=== PATIENT | male | born 2000 | race Caucasian/White ===

== ENCOUNTER 2019-09-10 20:28 | Inpatient (IN) | payer BC, SELFPAY ==
--- NOTE | ~2019-09-10 | XR_ITS ---
XR chest 1V portable 09/10/2019 21:09 Indication: Shortness of breath, cough and fever Procedure: AP portable chest Comparison: No prior studies for comparison. Findings: Right middle lobe and left perihilar airspace disease, compatible with pneumonia. Heart siz e normal. No pleural effusion, edema or pneumothorax. Impression: 1: Right middle lobe and left perihilar pneumonia. Reviewed, dictated and finalized at location A. Impression: 1: Right middle lobe and left perihilar pneumonia.
[2019-09-10 20:32] VITALS: BP 148/84; PULSE 120; RESP 18; TEMP 36.4; O2SAT 95
[2019-09-10 20:40] VITALS: BP 148/84; PULSE 115; RESP 22; TEMP 36.4; O2SAT 94
[2019-09-10 20:50] VITALS: PULSE 122
--- NOTE | 2019-09-10 20:51 | ECG_ITS ---
Measurements Intervals [place] Rate: 108 P: 13 NV: 121 QRS: 91 QRSD: 96 T: 13 QT: 314 QTc: 421 Interpretive Statements SINUS TACHYCARDIA RIGHT AXIS DEVIATION BORDERLINE T WAVE ABNORMALITY- INFERIOR LEADS ABNORMAL ECG Electronically Signed On 09-11-2019 7:09:43 CDT by Jose Collins D.O.
[2019-09-10 21:03] LABS: Basophils Absolute Auto 0.1 K/mm3 (0.0-0.1); Basophils Percent Auto 0.5 % (0.2-1.2); Eosinophils Absolute Auto 0.1 K/mm3 (0-0.3); Eosinophils Percent Auto 1.2 % (0-4.4); Hematocrit 43.7 % (42.0-52.0); Immature Granulocyte Absolute 0.06 K/mm3 (0.00-0.031); Immature Granulocyte Percent A 0.5 % (0-0.5); Lymphocytes Absolute Auto 1.25 K/mm3 (0.9-3.2); Lymphocytes Percent Auto 10.4 % (18.3-44.2); Mean Corpuscular HGB Conc 34.3 g/dl (32-36); Mean Corpuscular Volume 87.4 fl (80-100); Mean Platelet Volume 9.8 fl (7.4-10.4); Monocytes Absolute Auto 1.3 K/mm3 (0.1-0.6); Monocytes Percent Auto 10.9 % (2.6-8.5); Neutrophils Absolute Auto 9.2 K/mm3 (1.3-6.7); Neutrophils Percent Auto 76.5 % (45.5-73.1); Platelet Count Result 326 k/mm3 (150-375); Red Cell Distribution Width 12.3 % (11.5-14.5)
[2019-09-10 21:24] VITALS: BP 128/76; PULSE 104; RESP 24; O2SAT 93
[2019-09-10] MEDS: SODIUM CHLORIDE 0.9% IV 1,000 ML 999 ML IV CONT (21:30)
[2019-09-10 21:35] LABS: Blood Urea Nitrogen 12 mg/dL (8-21); Calcium 9.3 mg/dL (8.9-10.7); Carbon Dioxide 26 mmol/L (22-30); Chloride 103 mmol/L (98-107); Estimated CRCL calculation 124 ml/min; Estimated Glomerular Filt Rate > 60; Glucose 137 mg/dL (75-110); Potassium 3.5 mmol/L (3.4-5.0); Sodium 138 mmol/L (134-143)
--- NOTE | 2019-09-10 22:01 | ED.GENADULT ---
HPI - General Adult General Chief complaint: Upper Respiratory Infection Stated complaint: cough, fever Time Seen by Provider: 09/10/19 20:37 History of Present Illness HPI narrative: Patient is a 18-year-old male who presents ER with fever and cough. Ongoing over the last week. Cough is nonproductive. Is associate with some chest discomfort especially when coughing. He is short of breath with any type of movement and ambulation. 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 There have been some sick contacts we is unsure what they were diagnosed with. He reports sore throat but no rhinorrhea/sinus congestion. He has not been taking medications other than Tylenol for fever. Highest temperature was 104.0 ?F. No alleviating factors for his other symptoms. Reports decreased oral fluid and food intake. Related Data Allergies Allergy/AdvReac Type Severity Reaction Status Date / Time No Known Allergies Allergy Unverified 08/05/18 21:14 PMFSH Past Medical History Medical History (Updated 09/11/19 @ 00:41 by Maurice Váqzuez MD) No pertinent past medical history Surgical History Surgical History (Updated 09/10/19 @ 22:03 by Maurice Vázquez MD) No pertinent past surgical history Social History Social History (Updated 09/10/19 @ 22:03 by Mauriec Vázquez MD) Smoking status: Never smoker Alcohol intake: never Exam Narrative: Exam Narrative: GENERAL: Uncomfortable-appearing, well-nourished, and in no acute distress. HEAD: Normocephalic, atraumatic. CHEST: Clear to auscultation. No respiratory distress. HEART: Tachycardic and regular. Normal peripheral pulses. ABDOMEN: Soft, nontender, nondistended. EXTREMITIES: Normal range of motion. No edema. SKIN: Warm, dry, no rash. NEURO: Alert and oriented x3. PSYCH: Normal mood and affect. Course Vital Signs Vital signs: Vital Signs Temperature 97.6 F 09/10/19 20:32 Pulse Rate 120 H 09/10/19 20:32 Respiratory Rate 18 09/10/19 20:32 Blood Pressure 148/84 H 09/10/19 20:32 Pulse Oximetry 95 09/10/19 20:32 Temperature 99.6 F 09/11/19 00:36 Pulse Rate 112 H 09/11/19 00:36 Respiratory Rate 26 H 09/11/19 00:36 Blood Pressure 100/53 L 09/11/19 00:36 Pulse Oximetry 95 09/11/19 00:36 Medical Decision Making Vital Signs Vital Signs: Vital Signs Temperature 97.6 F 09/10/19 20:32 Pulse Rate 120 H 09/10/19 20:32 Respiratory Rate 18 09/10/19 20:32 Blood Pressure 148/84 H 09/10/19 20:32 Pulse Oximetry 95 09/10/19 20:32 Temperature 99.6 F 09/11/19 00:36 Pulse Rate 112 H 09/11/19 00:36 Respiratory Rate 26 H 09/11/19 00:36 Blood Pressure 100/53 L 09/11/19 00:36 Pulse Oximetry 95 09/11/19 00:36 Lab Data Result diagrams: 09/10/19 20:58 09/10/19 21:19 Labs: Lab Results 09/10/19 09/10/19 09/10/19 Range/Units 20:58 21:19 23:38 WBC 12.0 H (4.5-10.0) K/mm3 RBC 5.00 (4.6-6.20) M/mm3 Hgb 15.0 (14.0-18.0) g/dL Hct 43.7 (42.0-52.0) % MCV 87.4 (80-100) fl MCH 30.0 (26-34) pg MCHC 34.3 (32-36) g/dl RDW 12.3 (11.5-14.5) % Plt Count 326 (150-375) k/mm3 MPV 9.8 (7.4-10.4) fl Immature Gran % (Auto) 0.5 (0-0.5) % Neut % (Auto) 76.5 H (45.5-73.1) % Lymph % (Auto) 10.4 L (18.3-44.2) % Wilkin % (Auto) 10.9 H (2.6-8.5) % Eos % (Auto) 1.2 (0-4.4) % Baso % (Auto) 0.5 (0.2-1.2) % Lymph # (Auto) 1.25 (0.9-3.2) K/mm3 Wilkin # (Auto) 1.3 H (0.1-0.6) K/mm3 Eos # (Auto) 0.1 (0-0.3) K/mm3 Baso # (Auto) 0.1 (0.0-0.1) K/mm3 Abs Immat Gran (auto) 0.06 H (0.00-0.031) K/mm3 Absolute Neuts (auto) 9.2 H (1.3-6.7) K/mm3 Absolute Nucleated RBC 0.0 (0.0-0.012) K/mm3 Nucleated RBC % 0.0 (0.0-0.2) % Sodium 138 (134-143) mmol/L Potassium 3.5 (3.4-5.0) mmol/L Chloride 103 (98-107) mmol/L Carbon Dioxide 26 (22-30) mmol/L BUN 12 (8-21) mg/dL Creatinine
[2019-09-10 22:20] VITALS: BP 126/82; PULSE 100; RESP 22; O2SAT 96
--- NOTE | 2019-09-10 23:22 | PC.NURSE ---
tubed covid-19 swab to lab w/ paperwork
--- NOTE | 2019-09-10 23:23 | PC.NURSE ---
Patient lightly jogged in place in room, patient O2 sat decreased to 90 % RA and HR increased to 150. Resp 38-40. Patient c/o some SOB and increased cough.
[2019-09-10 23:24] VITALS: BP 136/74; PULSE 104; RESP 26; TEMP 37.7; O2SAT 95
[2019-09-11] VITALS (9 sets, daily range): BP systolic 100–140; BP diastolic 53–76; PULSE 101–115; RESP 16–26; TEMP 36.4–37.7; O2SAT 95–97; BMI 30.4
--- NOTE | 2019-09-11 00:22 | PC.NURSE ---
Patient report faxed to 3rd med/surg.
[2019-09-11 00:29] LABS: Lactic Acid Reflex 1.1 mmol/L (0.7-2.1)
--- NOTE | 2019-09-11 01:03 | ADMGEN ---
This patient, Todd Valenzuela, was admitted to [facility] Surg Room 328-01. Patient/family oriented to hospital policies and general routines including ID bracelet, bed and alarms, visiting hours, pain management, procedures, bathroom and other care routines, personal items, smoking policy, room service/diet, and visiting hours. Valuables list has been completed. Information on how to activate the Rapid Response Team has been discussed. Patient/Family are encouraged to report perceived risks to care and to ask questions if they do not understand what they are told or what they should do.
[2019-09-11] MEDS: ALBUTEROL SULFATE (*SP) INHALER 1 PUFF (02:02)
--- NOTE | 2019-09-11 02:08 | PM.IMHP ---
H&P: HPI History of Present Illness Chief complaint: multifocal pneumonia/possible covid Narrative: This is a 18 year old male who is known to be healthy and presented to the ER yesterday evening with a productive cough of clear sputum for one week along with fever, shortness of breath, loss of appetite, and a sore throat. Tmax was reported at 104.0 F. He denies any chest pain. The patient was evaluated in the ER and found to have a right middle lobe infiltrate on chest xray. 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 The patient was started on antibiotics and tested for coronavirus tonight. He was admitted to the hospital for observation at the request of ER physician. He is currently saturating 95% on room air and has no complaints other than a persistent cough. Review of Systems Review of Systems: All systems reviewed & are unremarkable except as noted in HPI and below PMFSH Past Medical History Medical History No pertinent past medical history Surgical History Surgical History No pertinent past surgical history Social History Social History Smoking status: Never smoker Alcohol intake: never Substance use: never Gender identity (if verbalized by the patient): Male Spiritual care concerns: No Agree to blood products: Yes Comments Family medical history is reviewed and unremarkable. Meds Home Medications and Allergies Home Medications Medication Instructions Recorded Confirmed Type No Home Medications 09/11/19 09/11/19 History Allergies Allergy/AdvReac Type Severity Reaction Status Date / Time No Known Allergies Allergy Unverified 08/05/18 21:14 Vital Signs Vital Signs - 24 hr 09/10/19 20:32 09/10/19 20:40 09/10/19 20:50 Temperature 36.4 C 36.4 C Pulse Rate 120 H 115 H 122 H Respiratory Rate 18 22 H Blood Pressure 148/84 H 148/84 H Pulse Oximetry 95 94 09/10/19 21:24 09/10/19 22:20 09/10/19 23:24 Temperature 37.7 C H Pulse Rate 104 H 100 104 H Respiratory Rate 24 H 22 H 26 H Blood Pressure 128/76 126/82 136/74 Pulse Oximetry 93 96 95 09/11/19 00:36 09/11/19 00:48 Temperature 37.6 C 37.5 C Pulse Rate 112 H 103 H Respiratory Rate 26 H 18 Blood Pressure 100/53 L 132/76 Pulse Oximetry 95 97 Exam Const: General: cooperative, healthy appearing, no acute distress, alert and awake Nutritional Appearance: well nourished Orientation/consciousness: patient oriented x3 HENMT: Head: normal to inspection General nose exam: Normal external nose present Face and sinus: normal facial exam Mouth: Yes Normal oral and palatal mucosa present and Yes oropharynx normal Eyes: Pupils: Equal, round and reactive pupils present EOM: EOMs intact bilaterally Neck: Neck: supple and no JVD Thyroid: thyroid normal Lymphatic: lymphadenopathy not noted Resp: Effort & Inspection: tachypneic Auscultation: rales bilateral Cardio: Rate: tachycardic Rhythm: regular rhythm Heart sounds: no murmurs GI: Inspection: normal to inspection Auscultation: normal bowel sounds Skin: General skin exam: normal color and no rashes or lesions noted Neuro: General: patient oriented x3 Cranial nerves: Yes CN's II-XII intact bilaterally and Yes Equal, round and reactive pupils present Speech: normal speech Motor exam (neuro): 5/5 motor strength present throughout Sensory Exam: normal sensation Extrem: General: normal to inspection and no edema Psych: Mental Status: mental status grossly normal Affect: normal affect H&P: Results Labs Labs: Short CBC 09/10/19 Range/Units 20:58 WBC 12.0 H (4.5-10.0) K/mm3 Hgb 15.0 (14.0-18.0) g/dL Hct 43.7 (42.0-52.0) % Plt Count 326 (150-375) k/mm3 [facility] 09/10/19 21:19 Sodium 138 Potassium 3.5 Chloride 103 Carbon Dioxide 26 BUN 12 Creati
[2019-09-11] MEDS: BENZONATATE 100 MG CAPSULE PO ×2 (02:46→08:38)
[2019-09-11] MEDS: ACETAMINOPHEN 325 MG TABLET 650 MG PO (02:46)
[2019-09-11 06:07] LABS: Basophils Percent Auto 0.2 % (0.2-1.2); Eosinophils Absolute Auto 0.1 K/mm3 (0-0.3); Eosinophils Percent Auto 0.6 % (0-4.4); Hematocrit 42.2 % (42.0-52.0); Hemoglobin 14.4 g/dL (14.0-18.0); Immature Granulocyte Absolute 0.07 K/mm3 (0.00-0.031); Immature Granulocyte Percent A 0.6 % (0-0.5); Lymphocytes Absolute Auto 1.11 K/mm3 (0.9-3.2); Lymphocytes Percent Auto 9.7 % (18.3-44.2); Mean Corpuscular HGB Conc 34.1 g/dl (32-36); Mean Corpuscular Hemoglobin 30.1 pg (26-34); Mean Corpuscular Volume 88.1 fl (80-100); Mean Platelet Volume 9.7 fl (7.4-10.4); Monocytes Absolute Auto 1.1 K/mm3 (0.1-0.6); Monocytes Percent Auto 9.6 % (2.6-8.5); Neutrophils Percent Auto 79.3 % (45.5-73.1); Platelet Count Result 309 k/mm3 (150-375); Red Blood Count 4.79 M/mm3 (4.6-6.20); Red Cell Distribution Width 12.3 % (11.5-14.5); White Blood Count 11.4 K/mm3 (4.5-10.0)
[2019-09-11 06:15] LABS: Blood Urea Nitrogen 10 mg/dL (8-21); Calcium 8.8 mg/dL (8.9-10.7); Carbon Dioxide 26 mmol/L (22-30); Chloride 104 mmol/L (98-107); Estimated CRCL calculation 111 ml/min; Estimated Glomerular Filt Rate > 60; Glucose 109 mg/dL (75-110); Magnesium 2.2 mg/dL (1.6-2.3); Potassium 3.8 mmol/L (3.4-5.0); Sodium 139 mmol/L (134-143)
[2019-09-11] MEDS: ALBUTEROL SULFATE (*SP) AEROSOL 1 PUFF 2 PUFF INHALATION ×4 (09:17→22:02)
--- NOTE | 2019-09-11 13:12 | PM.IMPN ---
Progress Note: A&P Assessment and Plan (1) RML pneumonia: Qualifiers: Pneumonia type: due to unspecified organism Qualified Code(s): J18.9 - Pneumonia, unspecified organism Code(s): J18.9 - Pneumonia, unspecified organism Status: Acute Assessment and Plan: The pt presented with 1 week hx of fever, cough, dyspnea, and loss of appetite. CXR revealed right middle lobe and left perihilar pneumonia. WBC is slowly decreasing and is 11.4 today with a left shift. COVID testing is pending. He reports that his dyspnea is improving. He still has a productive cough. Continue isolation Continue IV ceftriaxone and IV azithromycin Continue mucinex Continue continuous pulse oximetry Continue bronchodilators Urine legoinella and pneumococal Ag pending (2) Sepsis: Code(s): A41.9 - Sepsis, unspecified organism Status: Acute Assessment and Plan: The pt meets SIRS cirteria with tachypnea and tachycardia. The suspected source is pneumonia. He received 1L fluid bolus in the ED. Lactic acid is 1.1. Blood cultures are pending. His temp overnight was 99.9 F. Monitor vitals Await final blood cultures Subjective Date/time seen: 09/11/19 13:12 Interval history: Mr. Valenzuela is a 18 y.o. male who is seen in follow-up for pneumonia. He is being tested for COVID. He reports that he feel better today. He reports persistent cough productive of clear/yellow sputum. He reports that his dyspnea is improving. He reported previous loss of appetite but reports that his appetite is good and he is eating his lunch at the time of my visit. He denies nausea and vomiting. He denies abdominal pain. He denies chest pain. He reports mild headache due to consistent coughing. He denies lightheadedness and dizziness. He reports that he feels hot. He denies chills. The pt gave me permission to call and update his mom on his condition as well. Review of Systems Review of Systems: All systems reviewed & are unremarkable except as noted in HPI and below Exam Narrative: Exam Narrative: General: Well-developed and well-nourished 18 y.o. male who is sitting up in bed eating lunch. He is cooperative and in no acute distress. HEENT: Normocephalic and atraumatic. Conjunctivae and lids normal. PERRL. EOMI. Mucous membranes moist. No posterior pharyngeal erythema or exudate. Neck: Supple. No lymphadenopathy or masses. Cardiac: Tachycardia. Rhythm regular. S1 and S2 normal. Lungs: Normal respiratory effort. No accessory muscle use. Crackles at the right middle lobe. No wheezes. Abdomen: Bowel sounds active. Abdomen is soft, non-distended, and non-tender. Musculoskeletal: ROM within normal limits. Extremities: No lower extremity edema. Palpable DP and PT bilaterally. Neurological: Alert and oriented x3. No focal neurological deficits noted. Speech is clear. Skin: Normal color, texture, and turgor. No lesions or eruptions. Psychiatric: Judgment and insight intact. Mood and affect normal. Objective Data Vital Signs Vital Signs: Vital Signs - 24 hr 09/10/19 20:32 09/10/19 20:40 09/10/19 20:50 Temperature 97.6 F 97.6 F Pulse Rate 120 H 115 H 122 H Respiratory Rate 18 22 H Blood Pressure 148/84 H 148/84 H Pulse Oximetry 95 94 09/10/19 21:24 09/10/19 22:20 09/10/19 23:24 Temperature 99.9 F H Pulse Rate 104 H 100 104 H Respiratory Rate 24 H 22 H 26 H Blood Pressure 128/76 126/82 136/74 Pulse Oximetry 93 96 95 09/11/19 00:36 09/11/19 00:48 09/11/19 02:46 Temperature 99.6 F 99.5 F 99.9 F H Pulse Rate 112 H 103 H Respiratory Rate 26 H 18 Blood Pressure 100/53 L 132/76 Pulse Oximetry 95 97 09/11/19 03:46 09/11/19 06:00 09/11/19 08:00 Temperature 97.6 F 97.6 F 99.0 F Pulse Rate 115 H 101 H Respiratory Rate 18 20 Blood Pressure 112/73 140/65 Pulse Oximetry 95 95 09/11/19 12:00 Temperature 98.2 F Pulse Rate 104 H Respiratory Rate 18 Blood Pressure 129/71 Pulse Oximetry
[2019-09-12] VITALS (8 sets, daily range): BP systolic 114–144; BP diastolic 61–81; PULSE 95–115; RESP 16–18; TEMP 36.4–37.2; O2SAT 95–98
[2019-09-12 06:41] LABS: Basophils Absolute Auto 0.1 K/mm3 (0.0-0.1); Basophils Percent Auto 0.6 % (0.2-1.2); Eosinophils Absolute Auto 0.2 K/mm3 (0-0.3); Eosinophils Percent Auto 1.5 % (0-4.4); Hemoglobin 14.5 g/dL (14.0-18.0); Immature Granulocyte Absolute 0.16 K/mm3 (0.00-0.031); Immature Granulocyte Percent A 1.5 % (0-0.5); Lymphocytes Absolute Auto 1.94 K/mm3 (0.9-3.2); Lymphocytes Percent Auto 17.6 % (18.3-44.2); Mean Corpuscular HGB Conc 33.7 g/dl (32-36); Mean Corpuscular Hemoglobin 29.8 pg (26-34); Mean Corpuscular Volume 88.3 fl (80-100); Mean Platelet Volume 9.8 fl (7.4-10.4); Monocytes Percent Auto 9.1 % (2.6-8.5); Neutrophils Absolute Auto 7.7 K/mm3 (1.3-6.7); Neutrophils Percent Auto 69.7 % (45.5-73.1); Platelet Count Result 343 k/mm3 (150-375); Red Blood Count 4.87 M/mm3 (4.6-6.20); Red Cell Distribution Width 12.5 % (11.5-14.5)
[2019-09-12 06:54] LABS: Potassium 3.7 mmol/L (3.4-5.0)
[2019-09-12 06:59] LABS: Alanine Aminotransferase 29 U/L (4-50); Albumin Level 4.2 g/dL (3.7-5.6); Alkaline Phosphatase 113 U/L (58-237); Aspartate Amino Transferase 28 U/L (17-59); Bilirubin,Total 0.6 mg/dL (0.2-1.3); Blood Urea Nitrogen 10 mg/dL (8-21); Carbon Dioxide 24 mmol/L (22-30); Chloride 105 mmol/L (98-107); Estimated CRCL calculation 123 ml/min; Estimated Glomerular Filt Rate > 60; Glucose 98 mg/dL (75-110); Lactate Dehydrogenase 496 U/L (313-618); Sodium 139 mmol/L (134-143)
[2019-09-12 07:14] LABS: CRP 18.5 mg/dL (<1.0)
[2019-09-12] MEDS: ALBUTEROL SULFATE (*SP) AEROSOL 1 PUFF 2 PUFF INHALATION ×4 (08:21→20:56)
[2019-09-12 12:22] LABS: Pneumococcal Antigen Urine Not Detected (Not Detected)
--- NOTE | 2019-09-12 16:27 | PM.IMPN ---
Progress Note: A&P Assessment and Plan (1) RML pneumonia: Qualifiers: Pneumonia type: due to unspecified organism Qualified Code(s): J18.9 - Pneumonia, unspecified organism Code(s): J18.9 - Pneumonia, unspecified organism Status: Acute Assessment and Plan: The pt presented with 1 week hx of fever, cough, dyspnea, and loss of appetite. CXR revealed right middle lobe and left perihilar pneumonia. WBC is slowly decreasing to 11. COVID testing is still pending. CRP is 18.5 with no baseline for comparison. LDH is 496. LFTs are WNL. Ferritin is 166. Urine pneumococcal was not detected. O2 saturation is 98%. He is still tachycardic. He had an allergic reaction with itching and reported maculopapular rash after his azithromycin dose last night. The rash has resolved today. He denies any known hx of antibiotic allergies. Continue isolation Continue IV ceftriaxone. Will switch IV azithromycin to IV doxycycline. Continue mucinex Continue continuous pulse oximetry Continue bronchodilators Urine legionella is pending Repeat CRP tomorrow (2) Sepsis: Code(s): A41.9 - Sepsis, unspecified organism Status: Acute Assessment and Plan: The pt meets SIRS criteria at admission with tachypnea and tachycardia. The suspected source is pneumonia. He received 1L fluid bolus in the ED. Lactic acid was normal at 1.1. Blood cultures reveal NGTD. He has been afebrile today. Monitor vitals Await final blood cultures (3) Drug reaction: Code(s): T50.905A - Adverse effect of unspecified drugs, medicaments and biological substances, initial encounter Status: Acute Assessment and Plan: The pt reports itching and describes a maculopapular rash after his azithromycin dose last night. Discontinue IV azithromycin and begin IV doxycycline Continue benedryl PRN itching or rash Time Spent With Patient Time with patient: 15 - 25 minutes Subjective Date/time seen: 09/12/19 16:27 Interval history: Mr. Valenzuela is a 18 y.o. male who is seen in follow-up for pneumonia and is being tested for COVID. He reports that he developed itching and a rash after his dose of azithromcyin last night. He took benedryl today with relief and his eruption has resolved. He reports that overall, he is feeling better today. His cough frequency is improving and he also notes that it has become less productive. He denies chills. He reports that his appetite is good. He denies nausea, vomiting, and abdominal pain. He ambulated around his room without significant dyspnea today. Review of Systems Review of Systems: All systems reviewed & are unremarkable except as noted in HPI and below Exam Narrative: Exam Narrative: General: Cooperative, well-developed, and well-nourished 18 y.o. male sitting up in bed in no acute distress. HEENT: Normocephalic and atraumatic. Conjunctivae and lids normal. PERRL. EOMI. Mucous membranes moist. No posterior pharyngeal erythema or exudate. Neck: Supple. No lymphadenopathy or masses. Cardiac: Rate and rhythm regular. S1 and S2 normal. No murmur. Lungs: O2 sat is 95% on room air. Respiratory effort is normal. No accessory muscle use. Breath sounds are diminished. Abdomen: Bowel sounds active. Abdomen is soft, non-distended, and non-tender. Musculoskeletal: ROM within normal limits. Extremities: No edema to the lower extremities. Pedal pulses palpable. Neurological: Alert and oriented x3. No focal deficits. Speech is clear. Skin: Warm and dry. No eruptions at this time. Psychiatric: Judgment and insight intact. Mood and affect normal. Objective Data Vital Signs Vital Signs: Vital Signs - 24 hr 09/11/19 22:00 09/12/19 02:00 09/12/19 06:00 Temperature 98.4 F 98 F 97.7 F Pulse Rate 111 H 95 111 H Respiratory Rate 16 16 Blood Pressure 124/72 144/81 H Pulse Oximetry 96 97 09/12/19 06:33 09/12/19 10:29 09/12/19 14:00 Temperature 97.6 F 98.6 F Pulse
[2019-09-12 17:46] LABS: Legionella pneumophila Ag Ur Not Detected (Not Detected)
[2019-09-12 17:49] LABS: Creatine Kinase 115 U/L (55-170)
[2019-09-13 02:00] VITALS: BP 129/60; PULSE 113; RESP 18; TEMP 36.5; O2SAT 95
[2019-09-13 06:08] LABS: Basophils Absolute Auto 0.1 K/mm3 (0.0-0.1); Basophils Percent Auto 0.8 % (0.2-1.2); Eosinophils Absolute Auto 0.3 K/mm3 (0-0.3); Eosinophils Percent Auto 3.3 % (0-4.4); Hematocrit 43.8 % (42.0-52.0); Hemoglobin 14.5 g/dL (14.0-18.0); Immature Granulocyte Absolute 0.41 K/mm3 (0.00-0.031); Immature Granulocyte Percent A 4.5 % (0-0.5); Lymphocytes Absolute Auto 1.74 K/mm3 (0.9-3.2); Lymphocytes Percent Auto 18.9 % (18.3-44.2); Mean Corpuscular HGB Conc 33.1 g/dl (32-36); Mean Corpuscular Hemoglobin 29.5 pg (26-34); Mean Corpuscular Volume 89.2 fl (80-100); Mean Platelet Volume 9.9 fl (7.4-10.4); Monocytes Absolute Auto 0.7 K/mm3 (0.1-0.6); Monocytes Percent Auto 7.9 % (2.6-8.5); Neutrophils Absolute Auto 5.9 K/mm3 (1.3-6.7); Neutrophils Percent Auto 64.6 % (45.5-73.1); Platelet Count Result 369 k/mm3 (150-375); Red Blood Count 4.91 M/mm3 (4.6-6.20); Red Cell Distribution Width 12.6 % (11.5-14.5); White Blood Count 9.2 K/mm3 (4.5-10.0)
[2019-09-13 06:25] LABS: Alanine Aminotransferase 60 U/L (4-50); Albumin Level 4.2 g/dL (3.7-5.6); Alkaline Phosphatase 110 U/L (58-237); Aspartate Amino Transferase 44 U/L (17-59); Bilirubin,Total 0.7 mg/dL (0.2-1.3); Blood Urea Nitrogen 12 mg/dL (8-21); Calcium 9.3 mg/dL (8.9-10.7); Carbon Dioxide 26 mmol/L (22-30); Chloride 104 mmol/L (98-107); Estimated CRCL calculation 111 ml/min; Estimated Glomerular Filt Rate > 60; Glucose 99 mg/dL (75-110); Lactate Dehydrogenase 502 U/L (313-618); Potassium 4.4 mmol/L (3.4-5.0); Sodium 140 mmol/L (134-143)
[2019-09-13 06:36] LABS: CRP 12.3 mg/dL (<1.0)
[2019-09-13 07:31] VITALS: BP 145/72; PULSE 90; RESP 18; TEMP 36.9; O2SAT 94
[2019-09-13] MEDS: ALBUTEROL SULFATE (*SP) AEROSOL 1 PUFF 2 PUFF INHALATION ×2 (07:55→11:48)
[2019-09-13 10:00] VITALS: BP 134/72; PULSE 104; RESP 16; TEMP 36.6; O2SAT 96
[2019-09-13 14:00] VITALS: BP 109/83; PULSE 100; RESP 18; TEMP 36.7; O2SAT 96
--- NOTE | 2019-09-15 09:22 | PM.DS ---
DS: Diagnosis Admitting Diagnosis Admitting Diagnosis: Pneumonia, unspecified organism Discharge Diagnosis (1) RML pneumonia: Qualifiers: Pneumonia type: due to unspecified organism Qualified Code(s): J18.9 - Pneumonia, unspecified organism Code(s): J18.9 - Pneumonia, unspecified organism Status: Acute (2) Sepsis: Code(s): A41.9 - Sepsis, unspecified organism Status: Acute (3) Drug reaction: Code(s): T50.905A - Adverse effect of unspecified drugs, medicaments and biological substances, initial encounter Status: Acute DS: Summary Hospital Course Reason for hospitalization: Date of Service: 09/13/2019 at 3:00PM Mr. Valenzuela is a 18 y.o. male with no significant PMH who presented to the ED with c/o fever, productive cough with clear/yellow sputum, dyspnea with activity, anorexia, and sore throat. He works at [employer] and did have exposure to sick contacts but he is unsure what they were diagnosed with. He met SIRS criteria with tachypnea and tachycardia. Blood cultures were obtained. Initial workup revealed WBC 12 with a left shift and CBC otherwise unremarkable, CMP unremarkable, lactic acid 1.1, influenza negative, and strep screen presumed negative. Blood cultures were drawn. CXR revealed right middle lobe and left perihilar pneumonia. The pt was initiated on IV azithromycin, tested for COVID-19, and admitted to the hospitalist service. IV ceftriaxone was also added for empiric treatment of community-acquired pneumonia. His sx of cough and dyspnea improved and he did not develop hypoxia. He did report a rash (he described as maculopapular but I did not get to see it because it cleared overnight) and itching after his dose of azithromycin so that was discontinued and doxycycline was started. The rash and itching resolved with benedryl. His acute phase reactants were checked 09/11 and CRP was elevated at 18.5. He also reported itching after his doxycycline dose so that was also discontinued. On the day of discharge, his WBC count was WNL at 9.2 and CRP was trending down at 12.3. He reproted that he felt much better and was eager to go home. He was maintaining adequate oxygen saturation on room air. He had one small wheel on his right lower abdomen without any other evidence of rashes so I prescribed PO levaquin at discharge as I could not r/o hypersensitivity to ceftriaxone. He was advised to take benedryl for any itching and call his doctor immediately with any other reaction or 911 if his lips began to swell or he developed difficulty breathing. I instructed him to obtain a pulse oximeter and check his oxygen saturation intermittently and if he were to develop SOB. I discussed that he should return to the ED immediately should his respiratory status worsen. His COVID-19 testing results were not available at the time of discharge so I advised that he would be called with those results. He was instructed to self-quarantine at home away from his family for at least 7 days from sx onset and 72 hrs of being afebrile. Blood cultures reveal NGTD. Urine pneumococcal and legionella antigens were negative. Status at Discharge Functional status at discharge: independent ambulation Overall status at discharge: patient is back to baseline Time Spent with Patient Time attestation: Total time spent providing and/or coordinating discharge services: 30 minutes Exam Narrative: Exam Narrative: General: Cooperative, well-developed, and well-nourished 18 y.o. male sitting in bed. HEENT: Conjunctivae clear. PERRL. EOMI. Mucous membranes moist. Posterior pharynx WNL. Neck: Supple. No lymphadenopathy or masses. Cardiac: Rate and rhythm regular. S1 and S2 normal. Lungs: On room air. Speaking in full sentences without difficulty. Respiratory effort is normal. No accessory muscle use. Breath sounds are diminished, auscultation limited due to isolation stethoscope being used. Abdomen: Bowel sounds active. Abdomen is soft, non-distende
== END 2019-09-13 16:00 | disposition home or self-care (01) | DRG 871 ==
LOC: ANHED 23:19 → ANH3MEDSUR 09-11 00:19
PROVIDERS: Physician Assistant; Admitting Provider Family Medicine; Emergency Provider Emergency Medicine; Visit Provider Hospitalist
DX: A41.9 Sepsis, unspecified organism (principal); J18.9 Pneumonia, unspecified organism; L27.1 Localized skin eruption due to drugs and medicaments taken internally; T36.3X5A Adverse effect of macrolides, initial encounter
CPT/HCPCS: 36415; 71045; 80048; 80053; 82550; 82728; 83605; 83615; 83735; 85025; 86140; 87040; 87081; 87449; 87804; 87880; 87899; 93005; 94640; 96361; 96365; 96367; 99285; A9270; G0378; J0456; J0696; J7030

== ENCOUNTER 2021-05-27 05:11 | Day surgery (SDC) | payer BC, SELFPAY ==
[2021-05-27] VITALS (9 sets, daily range): BP systolic 109–153; BP diastolic 68–91; PULSE 97–126; RESP 16–28; TEMP 37; O2SAT 94–100
--- NOTE | 2021-05-27 05:13 | ED.GENADULT ---
HPI - General Adult General Chief complaint: Skin/Abscess/Foreign Body Stated complaint: food bolus Time Seen by Provider: 05/27/21 05:13 History of Present Illness HPI narrative: Patient is a 20-year-old male who presents ER with difficulty swallowing. He ate a piece of steak at 6 PM yesterday evening and has not been able to swallow since then. He has tried jumping up and down and drinking soda without improvement. No fevers or chills or sweats. Denies choking on any emesis or regurgitated material. No difficulty breathing. Patient has never had an EGD. Related Data Allergies Allergy/AdvReac Type Severity Reaction Status Date / Time azithromycin AdvReac Mild Itching Verified 05/27/21 05:20 doxycycline AdvReac Mild Itching Verified 09/13/19 14:56 Review of Systems Review of Systems: All systems reviewed & are unremarkable except as noted in HPI and below Constitutional: Constitutional: Denies chills and Denies fever(s) ENT: Reports dysphagia Cardiovascular: Cardiovascular: Denies chest pain, Denies rapid heart rate and Denies radiating jaw, neck or arm pain Respiratory: Respiratory: Denies cough and Denies dyspnea Gastrointestinal: Gastrointestinal: Denies abdominal pain, Denies diarrhea, Reports nausea and Reports vomiting (Waterbrash) [facility] Past Medical History Medical History (Updated 05/27/21 @ 06:48 by Maurice Vázquez MD) No pertinent past medical history Surgical History Surgical History No pertinent past surgical history Social History Social History Smoking status: Never smoker Alcohol intake: never Substance use: never Gender identity (if verbalized by the patient): Male Spiritual care concerns: No Agree to blood products: Yes Exam Narrative: GENERAL: Uncomfortable l-appearing, well-nourished, and in no acute distress. HEAD: Normocephalic, atraumatic. ENT: Mucous membranes moist. CHEST: Clear to auscultation. No respiratory distress. HEART: Regular rate and rhythm. Normal peripheral pulses. ABDOMEN: Soft, nontender, nondistended EXTREMITIES: Normal range of motion. No edema. NEURO: Alert and oriented x3. PSYCH: Normal mood and affect. Course Course Emergency Course: No improvement with glucagon. Discussed case with Dr. Tamayo with GI. He would like the patient to receive some sublingual nitroglycerin, some IV Versed 1 mg, and Procardia 10 mg in order to potentially relax lower esophageal tear and allow the food to pass. Reevaluation(s) Reevaluation #1: Patient received 2 doses of SL nitro and one dose IV versed 1mg. No change in symptoms. Dr. Tamayo will take pt to GI lab. Date: 05/27/21 Time: 06:48 Vital Signs Vital signs: Vital Signs Temperature 98.6 F 05/27/21 05:15 Pulse Rate 97 05/27/21 05:15 Respiratory Rate 16 05/27/21 05:15 Blood Pressure 140/80 05/27/21 05:15 Pulse Oximetry 96 05/27/21 05:15 Temperature 98.6 F 05/27/21 05:15 Pulse Rate 117 H 05/27/21 06:35 Respiratory Rate 19 05/27/21 06:35 Blood Pressure 143/86 H 05/27/21 06:35 Pulse Oximetry 94 05/27/21 06:35 Medical Decision Making Vital Signs Vital Signs: Vital Signs Temperature 98.6 F 05/27/21 05:15 Pulse Rate 97 05/27/21 05:15 Respiratory Rate 16 05/27/21 05:15 Blood Pressure 140/80 05/27/21 05:15 Pulse Oximetry 96 05/27/21 05:15 Temperature 98.6 F 05/27/21 05:15 Pulse Rate 117 H 05/27/21 06:35 Respiratory Rate 19 05/27/21 06:35 Blood Pressure 143/86 H 05/27/21 06:35 Pulse Oximetry 94 05/27/21 06:35 Discharge Plan Discharge Clinical Impression: Food impaction of esophagus Patient Disposition: Still a Patient Condition: Stable Prescriptions: No Action albuterol sulfate [Proventil HFA] 90 mcg/actuation Hfa Aerosol Inhaler 2 puff inhalation QIDRT 7 Days Qty: 6.7 RF: 0 guaifenesin [Muc
[2021-05-27] MEDS: GLUCAGON FOR INJ 1 MG VIAL IV PUSH (05:34)
[2021-05-27] MEDS: NITROGLYCERIN SL 0.4 MG TABLET SUBLINGUAL (06:06)
[2021-05-27] MEDS: MIDAZOLAM HCL (*CRX) 2 MG/2 ML VIAL 1 MG IV PUSH (06:06)
--- NOTE | 2021-05-27 06:25 | PC.NURSE ---
per EDP Justo no dose of Nifedipine required. dose returned to pharmacy at this time.
--- NOTE | 2021-05-27 06:35 | PC.NURSE ---
second dose of nitroglycerin given at this time per EDP Justo. total of 0.8 mg given
--- NOTE | 2021-05-27 07:31 | WPDANESEPPF ---
Anes - Initial Pre Proc Eval Procedure: EGD Date/Time: 05/27/21 07:31 Surgeon: Oscar Tamayo MD Pre Op Diagnosis: food bolus Patient Data Age: 20 Gender: M Height: 1.68 m Weight: 90.72 kg Last Vital Signs Temp 37.0 C 05/27/21 05:15 Pulse 118 H 05/27/21 06:53 Resp 20 05/27/21 06:53 BP 121/68 05/27/21 06:53 Pulse Ox 94 05/27/21 06:53 Allergies Allergy/AdvReac Type Severity Reaction Status Date / Time azithromycin AdvReac Mild Itching Verified 05/27/21 05:20 doxycycline AdvReac Mild Itching Verified 09/13/19 14:56 Home Medications Medication Instructions Recorded Confirmed Type albuterol sulfate [Proventil HFA] 2 puff INHALATION QIDRT 7 Days 09/13/19 Rx #6.7 gm guaifenesin [Mucus Relief ER] 600 mg PO Q12HR 7 Days #14 tablet 09/13/19 Rx levofloxacin [Levaquin] 750 mg PO DAILY 3 Days #3 tablet 09/13/19 Rx Patient hx anesthesia problems: none Family hx anesthesia problems: none Results Review: All pre-operative results and documents have been reviewed as part of the pre-operative evaluation. [facility] Past Medical History Medical History No pertinent past medical history Surgical History Surgical History No pertinent past surgical history Social History Social History Smoking status: Never smoker Alcohol intake: never Substance use: never Gender identity (if verbalized by the patient): Male Spiritual care concerns: No Agree to blood products: Yes Anes - Eval Final PreProcedure Day of Procedure 05/27/21 07:31 Patient weight: overweight Heart: regular rate and rhythm Lungs: clear to auscultation Airway: Mallampati scale class II Neurological: alert and oriented Last oral intake: >/= 8 hours ASA classification: II (trying to sip in clear liquids to moove FB but clears keep coming up) Emergent: yes Anesthetic plan: proceed Anesthesia type and monitoring: general (GIVS) and standard monitoring Results Review: All pre-operative results and documents have been reviewed as part of the pre-operative evaluation. Informed Consent: The patient's anesthetic plan and its attendant risks and benefits were discussed with the patient/family/POA. Questions were solicited and answers provided to the satisfaction of the patient/family/POA.
--- NOTE | 2021-05-27 07:51 | PC.NURSE ---
Dr. Tamayo at bedside.
--- NOTE | 2021-05-27 08:01 | WPDGICN ---
Assessment and Plan Additional Plan ER GI Consultation Dr. Tamayo May, This is a 20 year old patient without PMH/PSH who now presents for evaluation of food bolus impaction/esophageal foreign body. Patient is seen in ER room 6 with his mother, Liana, present for the entire visit at the request of the ER service to evaluate for same. The patient?s primary care provider is Dr. Shmuel Gonzales. Patient was eating steak about 6 pm 05-26-2021 when it got lodged. He cannot swallow his own secretions. He did not respond to Glucagon, NTG and Versed. He has had this happen before, rarely, and not as bad. He otherwise denies abdominal pain, nausea or vomiting, bloating, loss of appetite or weight, early satiety, heartburn, diarrhea or constipation, rectal bleeding or melena. Patient denies fever, jaundice, scleral icterus, dark urine, light stool, itching, hot or cold intolerance, chest pain, shortness of breath at rest, hematuria, dysuria, new cough or visual changes, easy bruising, tingling of the skin, bone pain or tremors. No history of endocarditis, rheumatic fever, dental prophylaxis, heart valve surgery, bleeding disorder or joint replacement. NKDA. Medications: none. Social history: nonsmoker, nondrinker. Family history: negative for GI malignancy. Physical exam: No lower extremity edema, jaundice, spider angioma, palmar erythema. Skull is normocephalic atraumatic. Sclera are non-icteric. Oropharynx is clear. Neck is supple without thyromegaly. Lungs are clear. Heart is rate and rhythm regular. S1 and S2 normal. Normal active bowel sounds. Non-tender, non-rigid, non-distended without hepatosplenomegaly or masses. No guarding. Rectal is deferred. Neuro is conscious and alert ?3. Labs and imaging: N/C Assessment and plan: Inability to swallow secondary to food bolus impaction/esophageal foreign body not responsive to meds: EGD. The procedure of upper endoscopy, its indications, alternatives of barium studies and risks including perforation, bleeding, infection, reaction to medication as well as the possible need for blood or surgery were discussed with the patient. Patient voices understanding, agrees to proceed and provides informed consent. Thank you very much for allowing me to share in the care of your patient. Further recommendations will follow EGD. Oscar Tamayo M.D. (c) [phone] GI Consult Note Consult date/time: 05/27/21 08:01 HPI: Todd Valenzuela is a 20 year old male [facility] Past Medical History Medical History No pertinent past medical history Surgical History Surgical History No pertinent past surgical history Social History Social History Smoking status: Never smoker Alcohol intake: never Substance use: never Gender identity (if verbalized by the patient): Male Spiritual care concerns: No Agree to blood products: Yes Meds Home Medications and Allergies Home Medications Medication Instructions Recorded Confirmed Type albuterol sulfate [Proventil HFA] 2 puff INHALATION QIDRT 7 Days 09/13/19 Rx #6.7 gm guaifenesin [Mucus Relief ER] 600 mg PO Q12HR 7 Days #14 tablet 09/13/19 Rx levofloxacin [Levaquin] 750 mg PO DAILY 3 Days #3 tablet 09/13/19 Rx Allergies Allergy/AdvReac Type Severity Reaction Status Date / Time azithromycin AdvReac Mild Itching Verified 05/27/21 05:20 doxycycline AdvReac Mild Itching Verified 09/13/19 14:56 Vital Signs Vital Signs - 24 hr 05/27/21 05:15 05/27/21 06:35 05/27/21 06:53 Temperature 37.0 C Pulse Rate 97 117 H 118 H Respiratory Rate 16 19 20 Blood Pressure 140/80 143/86 H 121/68 Pulse Oximetry 96 94 94
[2021-05-27] MEDS: LACTATED RINGERS 1,000 ML 150 ML IV CONT (08:47)
--- NOTE | 2021-05-27 08:55 | W.PM.PROC2 ---
Procedure Note - Detailed Date of Procedure 05/27/21 Pre-op Diagnosis food bolus Post-op Diagnosis same Procedure Performed EGD Surgeon Oscar Tamayo MD Anesthesia MAC Indications Food bolus impaction Description of Procedure OSCAR TAMAYO MD, FACG, FACP UPPER ENDOSCOPY 05-27-2021 INDICATION: Esophageal foreign body/food bolus impaction. POST-OP: Esophageal foreign body/food bolus impaction removed. SEDATION: Per anesthesia With the patient in the left lateral decubitus position, the Fujinon upper endoscope was used to easily intubate the patient?s esophagus and advanced to the distal esophagus where a food bolus was encountered. There was some trauma immediately above it. The bolus was easily pushed through to the stomach and the scope was advanced to the third portion of the duodenum. Careful inspection of the mucosa was made upon insertion and withdrawal of the endoscope with retroflexion in the stomach. FINDINGS: Esophagus: SC Jx at 40 cm with a ring and a small tear from the pushing through of the bolus. Esophagus is normal other than what is described. No mass or Paul?s. It was decided not to dilate. Stomach: Fundus, body and antrum normal. No ulceration, erosion, inflammation, AVM or malignancy. Duodenum: Normal in the bulb, second and third portion. No complications, blood loss or implants. ASSESSMENT AND PLAN: Esophageal foreign body/food bolus impaction: - Removed - Mild esophageal ring with tear; may need dilation in the future but not dilated today - No aspirin or NSAIDS x 2 weeks - Nexium OTC 1 tab daily x 30 days - Follow-up with [facility] in 2-4 weeks Oscar Tamayo M.D. [phone] Implants None Estimated Blood Loss 0 Pathology none sent Complications No immediate complications Condition stable Disposition other
--- NOTE | 2021-05-27 09:03 | SUR.PHASEII ---
Pt pre oped and post oped in endoscopy room 3.
--- NOTE | 2021-05-27 09:04 | SUR.PHASEII ---
Per Dr. Tamayo, pt okay to go home after recovery.
== END 2021-05-27 09:23 | disposition home or self-care (01) ==
LOC: ANHED 06:48 → ANHENDO 07:09
PROVIDERS: Emergency Provider Emergency Medicine; Visit Provider Internal Medicine Gastroenterology
PROC: 0DJ08ZZ Inspection of Upper Intestinal Tract, Via Natural or Artificial Opening Endoscopic (ICD-10-PCS; CPT 43235; principal; 2021-05-27 08:00)
DX: T18.128A Food in esophagus causing other injury, initial encounter (principal); Z79.51 Long term (current) use of inhaled steroids
CPT/HCPCS: 43247; 96374; 96375; 99285; A9270; J1610; J2250; J2704; J7120

== ENCOUNTER 2022-06-05 08:55 | Emergency (ER) | payer BC, SELFPAY ==
--- NOTE | 2022-06-05 09:24 | PC.NURSE ---
states I am going to urgent care and left. No acute distress.
== END 2022-06-05 09:24 | disposition left against medical advice (07) ==
LOC: ANHED 09:43
DX: Z53.21 Procedure and treatment not carried out due to patient leaving prior to being seen by health care provider (principal)
CPT/HCPCS: 99199